=== PATIENT | female | born 1960 | race American Indian/Alaskan Native ===

== ENCOUNTER 2016-10-24 11:58 | Emergency (ER) | payer OTHER ==
--- NOTE | 2016-10-24 16:12 | Emergency Department Report ---
Chief Complaint: Upper Respiratory Infection Stated Complaint: SINUS COLD SX/PINK EYE Time Seen by Provider: 10/24/16 16:11 - Exam Vital Signs: Vital Signs 10/24/16 12:16 Temperature 97.5 F L Pulse Rate 83 Respiratory 18 Rate Blood Pressure 161/63 O2 Sat by Pulse 97 Oximetry MSE screening note: Focused history and physical exam performed. Due to findings the following was ordered: ED Disposition for MSE Condition: Stable
--- NOTE | 2016-10-24 16:20 | Emergency Department Report ---
Addendum entered and electronically signed by GILBERTO TATUM PA 10/24/16 17:10 : Addendum to MDM: Patient with history of elevated blood pressure and her blood pressure is elevated today. He was also given prescription for hydrochlorothiazide. Says she ran out and she did not have a doctor and requested a refill. Patient was also given discharge instruction and hypertension Original Note: HPI - General Chief Complaint: Upper Respiratory Infection Time Seen by Provider: 10/24/16 16:11 - HPI HPI: Patient here reports that she has sinus pressure and headache systems as been getting worse last 3 days she started with a runny nose 2 weeks ago and is progressively getting worse. denies any chest pain or shortness of breath. Reports that she coughed occasionally. She started [id number] cold and cough medicine without any relief She said she woke up this morning she has redness and drainage to both eyes. She reports pain around her eyes 2 out of 10. She denies any fever or chills. ED Past Medical Hx - Past Medical History Previous Medical History?: Yes Hx Hypertension: Yes - Surgical History Past Surgical History?: No - Family History Family history: hypertension - Social History Smoking Status: Never Smoker Substance Use Type: Prescribed, Other - Medications Home Medications: Home Medications Medication Instructions Recorded Confirmed Last Taken Type Amoxicillin [Amoxicillin TAB] 875 mg PO QAM #14 tablet 10/24/16 Unknown Rx Cetirizine HCl [ZyrTEC] 10 mg PO QDAY #20 capsule 10/24/16 Unknown Rx Fluticasone [Flonase] 1 spray NS QDAY #1 bottle 10/24/16 Unknown Rx predniSONE [Deltasone] 50 mg PO QDAY #5 tab 10/24/16 Unknown Rx ED Review of Systems ROS: Stated complaint: SINUS COLD SX/PINK EYE Other details as noted in HPI Comment: All other systems reviewed and negative Constitutional: denies: chills, fever Eyes: other (Pain around eyes pointing to sinuses). denies: eye pain ENT: congestion (nasal congestion and facial pressure). denies: ear pain, throat pain Respiratory: cough. denies: shortness of breath, SOB with exertion, SOB at rest , stridor Cardiovascular: denies: chest pain, palpitations, edema, syncope Gastrointestinal: denies: abdominal pain, nausea, vomiting, diarrhea Musculoskeletal: denies: back pain, arthralgia Skin: denies: rash Neurological: denies: headache Physical Exam - Physical Exam Vital Signs: Vital Signs 10/24/16 12:16 Temperature 97.5 F L Pulse Rate 83 Respiratory 18 Rate Blood Pressure 161/63 O2 Sat by Pulse 97 Oximetry General: This is a 56-year-old female well-nourished well-developed in no acute distress. Physical Exam: Head: Normocephalic atraumatic Mouth: Moist, no pharyngeal exudate or erythema. Uvula is midline and oral airway is patent. No gingival enlargement or dental tenderness. No facial swelling. No peritonsillar abscesses. Neck: Supple, no C-spine tenderness, no tracheal deviation. Nontender to palpate. no adenopathy Ears: Bilateral TMs congested without erythema .bilateral EAC without any redness swelling or drainage Eyes: Bilateral pupils equal and reactive to light, bilateral EOM intact. Bilateral sclera and conjunctiva with injection. Normal accommodation Nose: Mucosa moist, positive congestion with erythema. Positive clear drainage. maxillary and frontal sinus tender to palpate. Lungs: Clear to auscultate bilaterally no rhonchi wheezes or rales. Normal work of breathing extremity; No CCE. +2 pulses. No neurovascular compromise Cardiovascular: S1-S2, regular rate rhythm. No murmurs. Skin: clean Dry and intact no rash no lesions Psych: Normal mood and behavior ED Course Vital Signs 10/24/16 12:16 Temperature 97.5 F L Pulse Rate 83 Respiratory 18 Rate Blood Pressure 161/63 O2 Sat by Pulse 97 Oximetry - Reevaluation(s) Reevaluation #1: 10/24/16 16:35 Patient stable throughout ED stay ED Medical Decision Making - Medical Decision Making ED course: Discussed the patient based on my physical findings she has conjunctivitis and sinus infection. This treatment plan with her and instructed her to follow up with primary care in 3-5 days. I instructed her she does not have a primary care physician she will need to follow-up with [facility]. Patient was given instruction on conjunctivitis and sinusitis. She was understanding of discharge instruction and discharged home with prescription for amoxicillin, Flonase, Zyrtec and prednisone. Critical care attestation.: If time is entered above; I have spent that time in minutes in the direct care of this critically ill patient, excluding procedure time. ED Disposition Clinical Impression: Sinusitis, acute Qualifiers: Sinusitis location: unspecified location Recurrence: not specified as recurrent Qualified Code(s): J01.90 - Acute sinusitis, unspecified Conjunctivitis Qualifiers: Conjunctivitis type: unspecified Laterality: bilateral Qualified Code(s): H10.9 - Unspecified conjunctivitis Disposition: DISCHARGED TO HOME OR SELFCARE Is pt being admited?: No Does the pt Need Aspirin: No Condition: Stable Instructions: Sinusitis (ED), Conjunctivitis (ED) Prescriptions: Amoxicillin [Amoxicillin TAB] 875 mg PO QAM #14 tablet predniSONE [Deltasone] 50 mg PO QDAY #5 tab Fluticasone [Flonase] 1 spray NS QDAY #1 bottle Cetirizine HCl [ZyrTEC] 10 mg PO QDAY #20 capsule Referrals: PRIMARY CARE,MD [Primary Care Provider] - 3-5 Days [facility] [Outside] - 3-5 Days Forms: Work/School Release Form(ED)
[2016-10-24 17:16] VITALS: BP 178/99
== END 2016-10-24 17:16 | disposition home or self-care (01) ==
LOC: ED 11:58
DX: J01.90 Acute sinusitis, unspecified (principal); H10.9 Unspecified conjunctivitis; I10 Essential (primary) hypertension
CPT/HCPCS: 99282

== ENCOUNTER 2019-07-26 11:05 | Outpatient (CLI) | payer SELFPAY ==
--- NOTE | 2019-08-01 09:53 | Mammography Report ---
DIGITAL SCREENING MAMMOGRAM WITH CAD, 07/26/2019 INDICATION: Routine screening mammography. TECHNIQUE: Digital bilateral 2D mammography was obtained in the craniocaudal and mediolateral obliq ue projections. This examination was interpreted with the benefit of Computer-Aided Detection analysi s. COMPARISON: 07/11/2018 and 04/26/2017 FINDINGS: Breast Density: The breasts are heterogeneously dense, which may obscure small masses. There is no evidence of dominant mass, suspicious calcifications or architectural distortion in eithe r breast. IMPRESSION: No mammographic evidence of malignancy. Follow up recommendation: Routine yearly BI-RADS Category 1: Negative. A "normal" or negative report should not discourage follow up or biopsy of a clinically significant f inding. A written summary of these findings will be mailed to the patient. The patient will be entered into a mammography reporting system which will generate a reminder letter for the patient's next appointmen t at the appropriate interval. The [employer] recommends yearly mammograms starting at age 40 and continuing as l bonnie as a woman is in good health. Breast MRI is recommended for women with an approximate 20-25% or greater lifetime risk of breast cancer, including women with a strong family history of breast or ova meenakshi cancer or who have been treated for Hodgkin's disease. Signer Name: Yovany Ceballos MD Signed: 08/01/2019 9:49 AM Workstation Name: [id number]
== END 2019-07-26 11:06 | disposition home or self-care (01) ==
LOC: SPVWC 11:05
PROVIDERS: ATTEND Physician Assistant
DX: Z12.31 Encounter for screening mammogram for malignant neoplasm of breast (principal); I10 Essential (primary) hypertension
CPT/HCPCS: 77067